=== PATIENT | female | born 1935 | race Caucasian/White ===

== ENCOUNTER → 2017-08-08 | Outpatient (CLI) | payer MEDICARE, OTHER ==
[~2017-08-08] MED LIST: AMLO2.5T74 PO; ASPI-715 PO; HYDR12.558 PO; LISI-374 PO; METF-411 PO; MULT-865 PO; SIM10 PO
--- NOTE | 2017-08-08 17:55 | RADIOLOGY IMAGING REPORT ---
[facility] PATIENT NAME: ROBBY MORGAN : [id number] MR: [id number] V: [id number] EXAM DATE: [id number] ORDERING PHYSICIAN: ELTON LUIS TECHNOLOGIST: Kari Sibley PROCEDURE:BILATERAL DIGITAL SCREENING MAMMOGRAM WITH CAD ASSISTED INTERPRETATION & 3D TOMOSYNTHESIS COMPARISON:Prior mammograms 07/28/16, 07/03/15, 11/22/12. INDICATIONS:SCREENING FINDINGS: A small to moderate amount of fibroglandular tissue is seen throughout the breasts. The parenchymal pattern has remained stable allowing for difference in mammographic technique & patient positioning. There is no evidence of malignant appearing mass, malignant appearing calcifications or other secondary sign of malignancy in either breast. DIAGNOSTIC CATEGORY 1--NEGATIVE. RECOMMENDATIONS: ROUTINE MAMMOGRAM AND CLINICAL EVALUATION. IMPRESSION: BIRADS 1: Negative. No significant abnormality is seen. Dictated by: Smiona De Santiago M.D. on 08/08/2017 at 10:59 Transcribed by: VARINDER on 08/08/2017 at 11:09 Approved by: Simona De Santiago M.D. on 08/08/2017 at 17:54 [facility]
== END ==
LOC: MAMO 06:48
PROVIDERS: ATTEND Family Medicine
DX: Z12.31 Encounter for screening mammogram for malignant neoplasm of breast (principal)
CPT/HCPCS: 77063; 77067

== ENCOUNTER → 2018-09-06 | Outpatient (CLI) | payer MEDICARE, OTHER ==
[~2018-09-06] MED LIST changes: -AMLO2.5T74 PO; +AMLO2.5T78 PO; -METF-411 PO; +METF-450 PO
--- NOTE | 2018-09-06 16:04 | RADIOLOGY IMAGING REPORT ---
FACILITY: [facility] PATIENT NAME: ROBBY MORGAN : [id number] MR: [id number] V: [id number] EXAM DATE: [id number] ORDERING PHYSICIAN: ELTON LUIS TECHNOLOGIST: Rasheeda Leblanc PROCEDURE: BILATERAL DIGITAL SCREENING MAMMOGRAM WITH CAD ASSISTED INTERPRETATION & 3D TOMOSYNTHESIS REASON FOR STUDY: Screening FAMILY HISTORY OF BREAST CANCER: BREAST PROCEDURES/TREATMENTS: COMPARISON: 08/08/17 back to 11/22/12 VIEWS OBTAINED: Bilateral 2D & 3D full field CC & MLO projections BREAST DENSITY: Breast parenchyma consists of scattered fibroglandular tissue. MAMMOGRAM FINDINGS: There are no developing masses or worrisome microcalcifications. DIAGNOSTIC CATEGORY 1--NEGATIVE. RECOMMENDATIONS: ROUTINE MAMMOGRAM AND CLINICAL EVALUATION. IMPRESSION: BIRADS 1: Negative. Dictated by: David Ireland M.D. on 09/06/2018 at 13:05 Transcribed by: PERRY on 09/06/2018 at 14:33 Approved by: David Ireland M.D. on 09/06/2018 at 15:59 [facility]
== END ==
LOC: MAMO 00:21
PROVIDERS: ATTEND Family Medicine
DX: Z12.31 Encounter for screening mammogram for malignant neoplasm of breast (principal)
CPT/HCPCS: 77063; 77067